=== PATIENT | female | born 1995 | race Caucasian/White ===

== ENCOUNTER 2018-11-08 12:07 | Emergency (ER) | payer OTHER ==
[2018-11-08 12:22] VITALS: TEMP 97.9; BMI 28.0
--- NOTE | 2018-11-08 12:37 | PDOC ---
History of Present Illness - General Chief Complaint: Pain, Acute Stated Complaint: DIARRHEA Time Seen by Provider: 11/08/18 12:30 Past History - Past Medical History Allergies/Adverse Reactions: Allergies Allergy/AdvReac Type Severity Reaction Status Date / Time No Known Allergies Allergy Verified 11/08/18 12:17 Home Medications: Ambulatory Orders Ondansetron HCl [Zofran] 4 mg PO Q8H #15 tablet 11/08/18 COPD: No - Suicide/Smoking/Psychosocial Hx Smoking History: Never smoked Have you smoked in the past 12 months: No Information on smoking cessation initiated: No Hx Alcohol Use: No Drug/Substance Use Hx: No *Physical Exam - Vital Signs Last Vital Signs Temp Pulse Resp BP Pulse Ox 97.9 F 72 16 99/64 100 11/08/18 12:17 11/08/18 12:17 11/08/18 12:17 11/08/18 12:17 11/08/18 12:17 ED Treatment Course - LABORATORY CBC & Chemistry Diagram: 11/08/18 12:55 11/08/18 12:55 Medical Decision Making - Medical Decision Making 11/08/18 12:35 23 yo F, h/o asthma, here w/ n/v/d w/ abd cramping x 4 days. No BRBPR, fever or chills. Denies dizziness or weakness. No recent antibiotic use, sick contacts or recent travel. See exam Possible gastroenteritis, no ttp over RLQ to suspect appy at this time -supportive tx -labs -reassess 11/08/18 14:24 Labs unremarkable. Patient reports feeling significantly better with meds and now requesting discharge. Abdomen remains benign on repeat examination and patient has since been able to tolerate po. Will dc with supportive treatment. Reasons to return discussed with patient *DC/Admit/Observation/Transfer Diagnosis at time of Disposition: Nausea & vomiting Qualifiers: Vomiting type: unspecified Vomiting Intractability: non-intractable Qualified Code(s): R11.2 - Nausea with vomiting, unspecified Diarrhea Qualifiers: Diarrhea type: unspecified type Qualified Code(s): R19.7 - Diarrhea, unspecified - Discharge Dispostion Disposition: HOME Condition at time of disposition: Improved - Prescriptions Prescriptions: Ondansetron HCl [Zofran] 4 mg PO Q8H #15 tablet - Referrals - Patient Instructions Printed Discharge Instructions: DI for Viral Gastroenteritis -- Adult Additional Instructions: Your labs are normal today. The most common cause of nausea, vomiting and diarrhea is usually viral. But if symptoms persist and/or worsen and you develop severe pain, especially over your right lower abdomen, please return to the ED for a CAT scan to rule out appendicitis as discussed today. Otherwise, maintain adequate hydration and take meds as discussed - Post Discharge Activity
[2018-11-08] MEDS ORDERED: ONDANSETRON 4 MG/2 ML VIAL IVPUSH ONE (12:38)
[2018-11-08] MEDS ORDERED: SODIUM CHLORIDE 1,000 ML IV STA (12:38)
[2018-11-08] MEDS ORDERED: KETOROLAC TROMETHAMINE 30 MG/1 ML VIAL IVPUSH ONE (12:38)
[2018-11-08] MEDS ORDERED: ONDANSETRON 4 MG/2 ML VIAL ONE (12:47)
[2018-11-08] MEDS ORDERED: KETOROLAC TROMETHAMINE 30 MG/1 ML VIAL ONE (12:47)
[2018-11-08 13:05] LABS: BASO % 0.4 % (0-2.0); EOS % 4.8 % (0-4.5); HEMATOCRIT 41.3 % (32.4-45.2); HEMOGLOBIN 13.9 GM/dL (10.7-15.3); LYMPH % 40.7 % (8-40); MCHC 33.7 g/dl (32.0-36.0); MEAN CELL VOLUME 85.9 fl (80-96); MEAN PLT VOLUME 7.7 fl (7.5-11.1); MONO % 8.8 % (3.8-10.2); NEUT % 45.3 % (42.8-82.8); PLATELET COUNT 253 K/MM3 (134-434); RBC 4.81 M/mm3 (3.60-5.2); RDW 13.7 % (11.6-15.6); WHITE BLOOD COUNT 6.4 K/mm3 (4.0-10.0)
[2018-11-08 13:22] LABS: EPI CELLS 6.4 /HPF (0-5/HPF); PH,URINE 5.5 (5.0-8.0); URINE APPEARANCE CLOUDY; URINE BACTERIA 307.1 /hpf (NEGATIVE); URINE BILIRUBIN NEGATIVE (NEGATIVE); URINE CASTS 17 /lpf (0-8); URINE COLOR YELLOW; URINE GLUCOSE (UA) NEGATIVE (NEGATIVE); URINE KETONE NEGATIVE (NEGATIVE); URINE LEUK ESTERASE 2+ (NEGATIVE); URINE NITRITE NEGATIVE (NEGATIVE); URINE PROTEIN 1+ (NEGATIVE); URINE RBC 6 /hpf (0-4); URINE UROBILINOGEN 0.2 mg/dL (0.2-1.0); URINE WBC 52 /hpf (0-5)
[2018-11-08 13:23] LABS: HCG,QUALITATIVE URINE Negative
[2018-11-08 13:40] LABS: ALBUMIN 3.6 g/dl (3.4-5.0); ALK PHOS 139 U/L (45-117); ANION GAP 5 MMOL/L (8-16); BILIRUBIN,TOTAL 0.3 mg/dL (0.2-1); BLOOD UREA NITROGEN 11 mg/dL (7-18); CALCIUM 8.4 mg/dL (8.5-10.1); CHLORIDE 110 mmol/L (98-107); CO2 29 mmol/L (21-32); CREATININE 0.6 mg/dL (0.55-1.3); GLUCOSE,RANDOM 71 mg/dL (74-106); LIPASE 190 U/L (73-393); POTASSIUM 3.8 mmol/L (3.5-5.1); SGOT/AST 31 U/L (15-37); SGPT/ALT 48 U/L (13-61); SODIUM 144 mmol/L (136-145)
[2018-11-08 14:41] VITALS: BP 121/75; PULSE 74
== END 2018-11-08 14:41 | disposition home or self-care (01) ==
LOC: JER 12:07
PROC: 3E0333Z Introduction of Anti-inflammatory into Peripheral Vein, Percutaneous Approach (ICD-10-PCS; principal; 2018-11-08)
PROC: 3E033GC Introduction of Other Therapeutic Substance into Peripheral Vein, Percutaneous Approach (ICD-10-PCS; 2018-11-08)
PROC: 3E0337Z Introduction of Electrolytic and Water Balance Substance into Peripheral Vein, Percutaneous Approach (ICD-10-PCS; 2018-11-08)
DX: R11.2 Nausea with vomiting, unspecified (principal); R19.7 Diarrhea, unspecified
CPT/HCPCS: 36415; 80053; 81003; 83690; 84703; 85025; 96361; 96374; 96375; 99283-25; J7030